=== PATIENT | male | born 1985 | race Caucasian/White ===

== ENCOUNTER 2017-04-14 09:38 | Emergency (ER) | payer OTHER | END 2017-04-14 13:15 | disposition home or self-care (01) | LOC: ER 09:38 | DX: L03.114 Cellulitis of left upper limb (principal); L02.412 Cutaneous abscess of left axilla; E87.6 Hypokalemia; B19.20 Unspecified viral hepatitis C without hepatic coma; F17.210 Nicotine dependence, cigarettes, uncomplicated | CPT/HCPCS: 36415; 96365; J3370 ==